=== PATIENT | female | born 1955 | race Caucasian/White ===

== ENCOUNTER 2021-05-12 17:04 | Inpatient (IN) | payer OTHER ==
[~2021-05-12] VITALS: Ht 162.6 cm; Wt 78.0 kg
[~2021-05-12 17:04] MED LIST: APIX5TAB MT; COR12 PO; FURO40TA5 PO; METO25TA6 PO; PANT40TA51 PO; SPIR25TA PO
[2021-05-12] MEDS ORDERED: ASPIRIN 81MG TABLET PO ONE (17:30)
[2021-05-12 20:36] LABS: HEMATOCRIT. 34.1 % (36.0-48.0); HEMOGLOBIN. 11.3 g/dL (12.0-16.0); MEAN CORPUSCULAR HEMOGLOBIN 29.1 pg (28.0-32.0); MEAN CORPUSCULAR VOLUME 88.1 fL (81.0-99.0); MEAN PLATELET VOLUME 9.4 fl (7.4-10.4); PLATELET 215 x1000/uL (130-400); RED BLOOD CELL COUNT 3.88 mill/uL (4.2-5.4); RED CELL DISTRIBUTION WIDTH 15.1 % (11.6-14.6)
[2021-05-12 20:44] LABS: CHLORIDE 95 mEq/L (98-107)
[2021-05-12 21:16] LABS: PLATELET ESTIMATE NORMAL
[2021-05-12] MEDS ORDERED: FUROSEMIDE 40MG/4ML VIAL IVP ONE (21:30)
[2021-05-12] MEDS ORDERED: SODIUM CHLORIDE 0.9% 500 ML IV ONE ×2 (22:30→23:30)
[2021-05-13] VITALS (30 sets, daily range): BP systolic 102–132; BP diastolic 46–82
[2021-05-13] MEDS ORDERED: NOREPINEPHRINE 32 MG in DEXT 5% WATER 218 ML IV PRN ×2 (01:45→02:00)
[2021-05-13] MEDS: ASPIRIN 81MG TABLET PO SCH (09:30)
[2021-05-13 10:08] LABS: INR 1.1; PROTHROMBIN TIME 12.2 sec (9.6-11.0)
[2021-05-13] MEDS: ENOXAPARIN 80MG/0.8ML SYR SUBCUT SCH ×2 (20:33→20:36)
[2021-05-13] MEDS: ATORVASTATIN CALCIUM 40MG TABLET PO SCH (20:33)
[2021-05-14] VITALS (61 sets, daily range): BP systolic 80–167; BP diastolic 32–111
[2021-05-14 07:05] LABS: HEMATOCRIT. 34.2 % (36.0-48.0); HEMOGLOBIN. 11.1 g/dL (12.0-16.0); MEAN CORPUSCULAR VOLUME 89.1 fL (81.0-99.0); MEAN PLATELET VOLUME 9.5 fl (7.4-10.4); PLATELET 283 x1000/uL (130-400); RED BLOOD CELL COUNT 3.84 mill/uL (4.2-5.4); RED CELL DISTRIBUTION WIDTH 15.2 % (11.6-14.6)
[2021-05-14 07:21] LABS: CHLORIDE 99 mEq/L (98-107)
[2021-05-14] MEDS: ASPIRIN 81MG TABLET PO SCH (09:00)
[2021-05-14] MEDS: KCL 20MEQ/100ML PREMIX 100 ML IV SCH ×2 (10:22→12:11)
[2021-05-14 16:30] LABS: PLATELET ESTIMATE NORMAL
[2021-05-14] MEDS ORDERED: DILTIAZEM HCL 5MG/ML 5ML VIAL IV NR (18:15)
[2021-05-14] MEDS ORDERED: ADENOSINE 3 MG/ML 2ML VIAL IV NR (18:15)
[2021-05-14] MEDS ORDERED: SODIUM CHLORIDE 0.9% 250 ML IV ONE (19:00)
[2021-05-14] MEDS: ATORVASTATIN CALCIUM 40MG TABLET PO SCH (21:31)
[2021-05-14] MEDS: ENOXAPARIN 80MG/0.8ML SYR SUBCUT SCH (21:31)
[2021-05-15] VITALS: BP 100/67
[2021-05-15 04:00] VITALS: BP 97/63
[2021-05-15 07:57] LABS: HEMATOCRIT. 35.5 % (36.0-48.0); HEMOGLOBIN. 11.6 g/dL (12.0-16.0); MEAN CORPUSCULAR HEMOGLOBIN 28.9 pg (28.0-32.0); MEAN PLATELET VOLUME 9.8 fl (7.4-10.4); PLATELET 280 x1000/uL (130-400); RED BLOOD CELL COUNT 3.99 mill/uL (4.2-5.4)
[2021-05-15 08:00] VITALS: BP 97/50
[2021-05-15 08:19] LABS: CHLORIDE 101 mEq/L (98-107)
[2021-05-15] MEDS ORDERED: NICARDIPINE 100MCG/ML 10ML VIAL (CATH LAB) IV ONE (08:53)
[2021-05-15] MEDS ORDERED: HEPARIN SODIUM 1,000 UNIT/1ML VIAL IV ONE (08:53)
[2021-05-15] MEDS ORDERED: NITROGLYCERIN 50MCG/ML 10ML VIAL (CATH LAB) IV ONE (08:53)
[2021-05-15] MEDS: ASPIRIN 81MG TABLET PO SCH (09:00)
[2021-05-15] MEDS: ENOXAPARIN 80MG/0.8ML SYR SUBCUT SCH ×2 (09:00→21:57)
[2021-05-15] MEDS ORDERED: FENTANYL CITRATE/PF 50MCG/ML 2ML VIAL ONE (10:02)
[2021-05-15] MEDS ORDERED: MIDAZOLAM HCL 2 MG/2 ML VIAL ONE (10:02)
[2021-05-15] MEDS ORDERED: IODIXANOL 320MG/ML 100 ML BOTTLE IV ONE (10:03)
[2021-05-15] MEDS ORDERED: LIDOCAINE HCL 1% 20ML VIAL (Pyxis) INJ ONE (10:03)
[2021-05-15] MEDS ORDERED: VERAPAMIL HCL 2.5 MG/1 ML 2ML VIAL IV ONE (10:03)
[2021-05-15] MEDS ORDERED: ACETAMINOPHEN 325MG TABLET PO PRN (13:00)
[2021-05-15] MEDS ORDERED: ATROPINE SULFATE 1MG/10ML SYR IV PRN (13:00)
[2021-05-15] MEDS: METOPROLOL SUCCINATE 50MG ER TABLET PO SCH (14:00)
[2021-05-15 14:56] VITALS: BP 112/61
[2021-05-15 16:00] VITALS: BP 101/64
[2021-05-15 17:42] LABS: PLATELET ESTIMATE NORMAL
[2021-05-15] MEDS ORDERED: COR12 PO (19:03)
[2021-05-15 19:46] VITALS: BP_SYST 103; BP_SYST 108; BP_DIAS 60; BP_DIAS 71
[2021-05-15] MEDS: ATORVASTATIN CALCIUM 40MG TABLET PO SCH (21:57)
[2021-05-16] VITALS: BP 96/61
[2021-05-16 07:28] LABS: HEMATOCRIT. 36.2 % (36.0-48.0); HEMOGLOBIN. 12.4 g/dL (12.0-16.0); MEAN CORPUSCULAR HEMOGLOBIN 29.9 pg (28.0-32.0); MEAN CORPUSCULAR VOLUME 87.7 fL (81.0-99.0); MEAN PLATELET VOLUME 9.7 fl (7.4-10.4); PLATELET 360 x1000/uL (130-400); RED BLOOD CELL COUNT 4.13 mill/uL (4.2-5.4); RED CELL DISTRIBUTION WIDTH 15.6 % (11.6-14.6)
[2021-05-16 07:36] LABS: CHLORIDE 96 mEq/L (98-107)
[2021-05-16 08:00] VITALS: BP 119/76
[2021-05-16] MEDS: METOPROLOL SUCCINATE 50MG ER TABLET PO SCH (09:17)
[2021-05-16] MEDS: ASPIRIN 81MG TABLET PO SCH (09:17)
[2021-05-16] MEDS: ENOXAPARIN 80MG/0.8ML SYR SUBCUT SCH (09:17)
[2021-05-16 12:00] VITALS: BP 113/51
[2021-05-16] MEDS ORDERED: LEVO500T89 MT (12:08)
[2021-05-16] MEDS ORDERED: CEFTRIAXONE 1 G PREMIX 50 ML IV SCH (12:15)
[2021-05-16 13:26] LABS: PLATELET ESTIMATE NORMAL
[2021-05-16] MEDS ORDERED: CEFTRIAXONE 1,000 MG in DEXTROSE 5% WATER 50 ML IV SCH (13:30)
[2021-05-16 15:00] LABS: CLARITY URINE CLOUDY (CLEAR); COLOR URINE DARK YELLOW (YELLOW); KETONES URINE TRACE (NEGATIVE); LEUKOCYTE ESTERASE URINE 2+ (NEGATIVE); NITRITE URINE POSITIVE (NEGATIVE); OCCULT BLOOD URINE NEGATIVE (NEGATIVE); PH URINE 5.5 (4.5-8.0); PROTEIN URINE 1+ (NEGATIVE)
[2021-05-16 16:00] VITALS: BP 108/60
== END 2021-05-16 22:08 | disposition home or self-care (01) | DRG 280 ==
LOC: ER 17:04 → MICUSO 21:31 → EDBEDREQTM 21:42 → EDBEDREQ 21:42 → CVICU 05-13 18:56 → 6WST 05-14 15:13
PROVIDERS: ADMIT Internal Medicine; ATTEND Internal Medicine
PROC: 02HV33Z Insertion of Infusion Device into Superior Vena Cava, Percutaneous Approach (ICD-10-PCS; principal; 2021-05-12)
PROC: B548ZZA Ultrasonography of Superior Vena Cava, Guidance (ICD-10-PCS; 2021-05-12)
PROC: 4A023N7 Measurement of Cardiac Sampling and Pressure, Left Heart, Percutaneous Approach (ICD-10-PCS; 2021-05-15)
PROC: B211YZZ Fluoroscopy of Multiple Coronary Arteries using Other Contrast (ICD-10-PCS; 2021-05-15)
DX: I21.4 Non-ST elevation (NSTEMI) myocardial infarction (principal); I50.23 Acute on chronic systolic (congestive) heart failure; E43 Unspecified severe protein-calorie malnutrition; A41.9 Sepsis, unspecified organism; I42.8 Other cardiomyopathies; E87.1 Hypo-osmolality and hyponatremia; I48.19 Other persistent atrial fibrillation; R57.9 Shock, unspecified; I48.92 Unspecified atrial flutter; N39.0 Urinary tract infection, site not specified; I27.20 Pulmonary hypertension, unspecified; Z20.822 Contact with and (suspected) exposure to COVID-19; E11.9 Type 2 diabetes mellitus without complications; E78.5 Hyperlipidemia, unspecified; E87.8 Other disorders of electrolyte and fluid balance, not elsewhere classified; I34.0 Nonrheumatic mitral (valve) insufficiency; I25.10 Atherosclerotic heart disease of native coronary artery without angina pectoris; I44.7 Left bundle-branch block, unspecified; I11.0 Hypertensive heart disease with heart failure; E66.9 Obesity, unspecified; Z68.29 Body mass index [BMI] 29.0-29.9, adult; Z79.01 Long term (current) use of anticoagulants; Z86.16 Personal history of COVID-19; Z87.442 Personal history of urinary calculi; Z79.899 Other long term (current) drug therapy
CPT/HCPCS: 36415; 71045; 80048; 80053; 81003; 83605; 83880; 84145; 84484; 85025; 87426; 93005; 93306; 93458; 99291; C1769; C1887; C1893; J0153; J0696; J1644; J1650; J1940; J2250; J3010; J3480; J3490; J7040; J7060; Q9967

== ENCOUNTER 2022-01-01 18:49 | Inpatient (IN) | payer OTHER ==
[~2022-01-01] VITALS: Ht 165.1 cm; Wt 68.9 kg
[~2022-01-01 18:49] MED LIST changes: +LEVO500T90 MT; -METO25TA6 PO
[2022-01-01] MEDS ORDERED: ACETAMINOPHEN 325MG TABLET PO ONE (19:30)
[2022-01-01] MEDS ORDERED: ASPIRIN 81MG TABLET PO ONE (19:30)
[2022-01-01] MEDS ORDERED: NITROGLYCERIN 0.4MG TABLET SL SL PRN (19:30)
[2022-01-01] MEDS ORDERED: NITROGLYCERIN OINT 1GM/INCH UDPKT TD ONE (20:00)
[2022-01-01] MEDS ORDERED: FUROSEMIDE 40MG/4ML VIAL IV ONE (20:00)
[2022-01-01] MEDS ORDERED: NITROGLYCERIN OINT 1GM/INCH UDPKT TD SCH (20:15)
[2022-01-01] MEDS ORDERED: ASPIRIN 81MG TABLET PO SCH (20:15)
[2022-01-01] MEDS ORDERED: ACETAMINOPHEN 325MG TABLET PO SCH (20:15)
[2022-01-01 20:19] LABS: BASOPHILS % 0.9 % (0.0-2.0); EOSINOPHILS % 0.1 % (0.0-5.0); HEMATOCRIT. 39.1 % (36.0-48.0); HEMOGLOBIN. 12.8 g/dL (12.0-16.0); LYMPHOCYTES % 10.3 % (20.0-50.0); MEAN CORPUSCULAR HEMOGLOBIN 29.3 pg (28.0-32.0); MEAN CORPUSCULAR VOLUME 89.6 fL (81.0-99.0); MEAN PLATELET VOLUME 10.2 fl (7.4-10.4); MONOCYTES % 4.8 % (2.0-8.0); NEUTROPHILS % 83.9 % (40.0-76.0); PLATELET 190 x1000/uL (130-400); RED BLOOD CELL COUNT 4.37 mill/uL (4.2-5.4); RED CELL DISTRIBUTION WIDTH 16.7 % (11.6-14.6)
[2022-01-01 20:40] LABS: CHLORIDE 104 mEq/L (98-107)
[2022-01-01 21:34] LABS: BG BASE EXCESS -0.6 mmol/L (-2.0-2.0); BG CARBOXYHEMOGLOBIN 0.4 % (0.5-1.5); BG DEOXYHEMOGLOBIN 1.5 % (0.0-5.0); BG FRACTION INSPIRED OXYGEN 40; BG HCO3 ACT 23.2 mmol/L (22.0-26.0); BG METHEMOGLOBIN 0.3 % (0.0-1.5); BG OXYGEN SATURATION 98.5 % (92.0-98.5); BG OXYHEMOGLOBIN 97.8 % (94.0-97.0); BG PCO2 35.3 mmHg (35.0-45.0); BG PH 7.435 (7.350-7.450); BG PO2 134.7 mmHg (75.0-100.0); BG SAMPLE SITE LEFT RADIAL; BG TOTAL HEMOGLOBIN 12.4 g/dL (12.0-18.0); BG VENT MODE MASK - BIPAP
[2022-01-01] MEDS ORDERED: DOCUSATE SODIUM 100MG CAPSULE PO PRN (23:15)
[2022-01-01] MEDS ORDERED: PANTOPRAZOLE 40MG DR TABLET PO SCH (23:15)
[2022-01-01] MEDS ORDERED: GUAIFENESIN 200MG/10ML SUGAR FREE UDC PO PRN (23:15)
[2022-01-01] MEDS ORDERED: ACETAMINOPHEN 325MG TABLET PO PRN (23:15)
[2022-01-01] MEDS: SPIRONOLACTONE 25MG TABLET PO SCH (23:15)
[2022-01-01] MEDS ORDERED: TRAMADOL 50MG TABLET PO PRN (23:15)
[2022-01-01] MEDS ORDERED: HYDROCODONE/ACETAMINOPHEN 5/325MG TABLET PO PRN (23:15)
[2022-01-01] MEDS ORDERED: MAGNESIUM/ALUMINUM HYDROXIDE/SIMETHICONE 30ML UDC PO PRN (23:15)
[2022-01-02 05:22] LABS: BASOPHILS % 0.7 % (0.0-2.0); EOSINOPHILS % 0.1 % (0.0-5.0); HEMATOCRIT. 37.7 % (36.0-48.0); HEMOGLOBIN. 12.2 g/dL (12.0-16.0); LYMPHOCYTES % 15.4 % (20.0-50.0); MEAN CORPUSCULAR HEMOGLOBIN 28.9 pg (28.0-32.0); MEAN CORPUSCULAR VOLUME 89.5 fL (81.0-99.0); MEAN PLATELET VOLUME 9.7 fl (7.4-10.4); MONOCYTES % 5.6 % (2.0-8.0); NEUTROPHILS % 78.2 % (40.0-76.0); PLATELET 143 x1000/uL (130-400); RED BLOOD CELL COUNT 4.21 mill/uL (4.2-5.4); RED CELL DISTRIBUTION WIDTH 16.5 % (11.6-14.6)
[2022-01-02 05:29] LABS: CHLORIDE 103 mEq/L (98-107)
[2022-01-02 05:48] LABS: LDL CHOLESTEROL 70 mg/dL (5-100)
[2022-01-02 06:04] LABS: HDL CHOLESTEROL 73 mg/dL (40-59)
[2022-01-02] MEDS: ONDANSETRON HCL 4MG/2ML INJ IV PRN (06:18)
[2022-01-02 06:42] LABS: BG BASE EXCESS -0.7 mmol/L (-2.0-2.0); BG CARBOXYHEMOGLOBIN 0.8 % (0.5-1.5); BG DEOXYHEMOGLOBIN 5.7 % (0.0-5.0); BG FRACTION INSPIRED OXYGEN 36; BG HCO3 ACT 23.5 mmol/L (22.0-26.0); BG OXYGEN SATURATION 94.3 % (92.0-98.5); BG OXYHEMOGLOBIN 93.5 % (94.0-97.0); BG PCO2 37.6 mmHg (35.0-45.0); BG PH 7.414 (7.350-7.450); BG PO2 75.3 mmHg (75.0-100.0); BG SAMPLE SITE LEFT RADIAL; BG TOTAL HEMOGLOBIN 13.2 g/dL (12.0-18.0); BG VENT MODE NASAL CANNULA
[2022-01-02] MEDS ORDERED: CARVEDILOL 12.5MG TABLET PO SCH (09:00)
[2022-01-02] MEDS: SPIRONOLACTONE 25MG TABLET PO SCH ×2 (09:00→16:55)
[2022-01-02] MEDS ORDERED: FUROSEMIDE 40MG/4ML VIAL IV SCH ×2 (09:00→13:00)
[2022-01-02] MEDS: PANTOPRAZOLE 40MG DR TABLET PO SCH (09:43)
[2022-01-02] MEDS: APIXABAN 5 MG TABLET PO SCH ×2 (09:43→16:58)
[2022-01-02 12:00] VITALS: BP 103/58
[2022-01-02 13:03] VITALS: BP 108/70
[2022-01-02] MEDS ORDERED: EMPA10TA PO (14:00)
[2022-01-02] MEDS: POTASSIUM CHLORIDE 20MEQ TABLET SR PO SCH (14:04)
[2022-01-02 16:00] VITALS: BP 105/58
[2022-01-02] MEDS: FUROSEMIDE 40MG/4ML VIAL IV SCH (18:54)
[2022-01-02] MEDS ORDERED: EMPA10TA MT (19:47)
[2022-01-02 20:00] VITALS: BP 100/56
[2022-01-02] MEDS: ATORVASTATIN CALCIUM 10MG TABLET PO SCH (20:32)
[2022-01-03] VITALS (7 sets, daily range): BP systolic 85–105; BP diastolic 51–74
[2022-01-03] MEDS: FUROSEMIDE 40MG/4ML VIAL IV SCH ×2 (05:20→18:00)
[2022-01-03 06:56] LABS: HEMATOCRIT 36.3 % (36.0-48.0); HEMOGLOBIN 11.8 g/dL (12.0-16.0); MEAN CORPUSCULAR HEMOGLOBIN 29.1 pg (28.0-32.0); MEAN CORPUSCULAR VOLUME 89.8 fL (81.0-99.0); PLATELET 139 x1000/uL (130-400); RED BLOOD CELL COUNT 4.04 mill/uL (4.2-5.4); RED CELL DISTRIBUTION WIDTH 16.4 % (11.6-14.6)
[2022-01-03 07:18] LABS: CHLORIDE 101 mEq/L (98-107)
[2022-01-03 07:28] LABS: PHOSPHORUS 2.8 mg/dL (2.5-4.9)
[2022-01-03] MEDS ORDERED: POTASSIUM PHOS,M-BASIC-D-BASIC 20 MMOL in DEXT 5% WATER 243.3333 ML IV ONE (10:00)
[2022-01-03] MEDS: APIXABAN 5 MG TABLET PO SCH ×2 (11:18→18:16)
[2022-01-03] MEDS: POTASSIUM CHLORIDE 20MEQ TABLET SR PO SCH (11:18)
[2022-01-03] MEDS: SPIRONOLACTONE 25MG TABLET PO SCH (11:40)
[2022-01-03] MEDS: PANTOPRAZOLE 40MG DR TABLET PO SCH (11:41)
[2022-01-03] MEDS ORDERED: NALOXONE HCL 0.4MG/ML VIAL IV PRN (18:45)
[2022-01-03] MEDS: ATORVASTATIN CALCIUM 10MG TABLET PO SCH (20:35)
[2022-01-04 04:00] VITALS: BP 97/66
[2022-01-04] MEDS: FUROSEMIDE 40MG/4ML VIAL IV SCH ×2 (05:21→17:01)
[2022-01-04 08:00] VITALS: BP 115/92
[2022-01-04] MEDS: POTASSIUM CHLORIDE 20MEQ TABLET SR PO SCH (08:01)
[2022-01-04] MEDS: SPIRONOLACTONE 25MG TABLET PO SCH (08:01)
[2022-01-04] MEDS: PANTOPRAZOLE 40MG DR TABLET PO SCH (08:01)
[2022-01-04] MEDS: APIXABAN 5 MG TABLET PO SCH ×2 (08:01→16:50)
[2022-01-04 10:42] LABS: BG BASE EXCESS 4.5 mmol/L (-2.0-2.0); BG CARBOXYHEMOGLOBIN 0.8 % (0.5-1.5); BG DEOXYHEMOGLOBIN 1.8 % (0.0-5.0); BG FRACTION INSPIRED OXYGEN 21; BG HCO3 ACT 26.5 mmol/L (22.0-26.0); BG METHEMOGLOBIN 0.1 % (0.0-1.5); BG OXYGEN SATURATION 98.2 % (92.0-98.5); BG OXYHEMOGLOBIN 97.3 % (94.0-97.0); BG PCO2 31.2 mmHg (35.0-45.0); BG PH 7.547 (7.350-7.450); BG PO2 96.5 mmHg (75.0-100.0); BG SAMPLE SITE LEFT RADIAL; BG TOTAL HEMOGLOBIN 12.3 g/dL (12.0-18.0); BG VENT MODE ROOM AIR
[2022-01-04 11:33] VITALS: BP 95/60
[2022-01-04 12:27] VITALS: BP 95/65
[2022-01-04 13:27] LABS: HEMATOCRIT 40.8 % (36.0-48.0); HEMOGLOBIN 13.1 g/dL (12.0-16.0); MEAN CORPUSCULAR HEMOGLOBIN 29.3 pg (28.0-32.0); MEAN CORPUSCULAR VOLUME 91.5 fL (81.0-99.0); PLATELET 122 x1000/uL (130-400); RED BLOOD CELL COUNT 4.45 mill/uL (4.2-5.4); RED CELL DISTRIBUTION WIDTH 16.9 % (11.6-14.6)
[2022-01-04 13:40] LABS: CHLORIDE 101 mEq/L (98-107)
[2022-01-04 13:45] LABS: PHOSPHORUS 2.3 mg/dL (2.5-4.9)
[2022-01-04] MEDS: ONDANSETRON HCL 4MG/2ML INJ IV PRN (14:32)
[2022-01-04] MEDS ORDERED: SODIUM CHLORIDE 0.45% 250 ML IV ONE (14:45)
[2022-01-04] MEDS ORDERED: METOPROLOL TARTRATE 5MG/5ML VIAL IV SCH (14:45)
[2022-01-04] MEDS: METOPROLOL TARTRATE 25MG TABLET PO SCH ×2 (15:00→23:00)
[2022-01-04 15:38] VITALS: BP 110/82
[2022-01-04] MEDS ORDERED: SODIUM CHLORIDE 0.45% 250 ML IV SCH (17:00)
[2022-01-04] MEDS ORDERED: SODIUM CHLORIDE 0.45% 500 ML IV NR (17:00)
[2022-01-04 20:00] VITALS: BP 107/59
[2022-01-04] MEDS: ATORVASTATIN CALCIUM 10MG TABLET PO SCH (21:01)
[2022-01-05] VITALS: BP 107/67
[2022-01-05] MEDS: ONDANSETRON HCL 4MG/2ML INJ IV PRN (00:03)
[2022-01-05 04:00] VITALS: BP 92/55
[2022-01-05] MEDS: FUROSEMIDE 40MG/4ML VIAL IV SCH (06:21)
[2022-01-05 08:04] VITALS: BP 90/53
[2022-01-05] MEDS: METOPROLOL TARTRATE 25MG TABLET PO SCH (08:17)
[2022-01-05] MEDS: APIXABAN 5 MG TABLET PO SCH (08:17)
[2022-01-05] MEDS: PANTOPRAZOLE 40MG DR TABLET PO SCH (08:17)
[2022-01-05] MEDS: POTASSIUM CHLORIDE 20MEQ TABLET SR PO SCH (08:17)
[2022-01-05 09:16] LABS: HEMATOCRIT 33.7 % (36.0-48.0); MEAN CORPUSCULAR HEMOGLOBIN 29.1 pg (28.0-32.0); MEAN CORPUSCULAR VOLUME 88.7 fL (81.0-99.0); PLATELET 131 x1000/uL (130-400); RED CELL DISTRIBUTION WIDTH 16.5 % (11.6-14.6)
[2022-01-05 09:22] LABS: CHLORIDE 100 mEq/L (98-107)
[2022-01-05 09:27] LABS: PHOSPHORUS 2.1 mg/dL (2.5-4.9)
[2022-01-05 11:41] VITALS: BP 91/55
[2022-01-06] MEDS ORDERED: FUROSEMIDE 40MG TABLET PO SCH (09:00)
== END 2022-01-05 13:07 | disposition home or self-care (01) | DRG 291 ==
LOC: ER 18:49 → MICUSO 21:16 → 8WST 01-02 10:05
PROVIDERS: ADMIT Hospitalist; ATTEND Hospitalist
PROC: 5A09357 Assistance with Respiratory Ventilation, Less than 24 Consecutive Hours, Continuous Positive Airway Pressure (ICD-10-PCS; principal; 2022-01-01)
DX: I11.0 Hypertensive heart disease with heart failure (principal); I50.23 Acute on chronic systolic (congestive) heart failure; J96.01 Acute respiratory failure with hypoxia; I48.19 Other persistent atrial fibrillation; I48.92 Unspecified atrial flutter; I07.1 Rheumatic tricuspid insufficiency; I27.20 Pulmonary hypertension, unspecified; I42.8 Other cardiomyopathies; I25.10 Atherosclerotic heart disease of native coronary artery without angina pectoris; I44.7 Left bundle-branch block, unspecified; E11.9 Type 2 diabetes mellitus without complications; Z91.14 Patient's other noncompliance with medication regimen; Z79.01 Long term (current) use of anticoagulants; Z79.84 Long term (current) use of oral hypoglycemic drugs; Z79.899 Other long term (current) drug therapy; Z87.442 Personal history of urinary calculi
CPT/HCPCS: 36415; 36600; 71045; 80048; 80053; 80061; 82375; 82805; 83036; 83735; 83880; 84100; 84484; 85025; 85027; 85379; 93005; 93306; 93970; 94660; 99291; J1940; J2405; J3490; J7060

== ENCOUNTER 2022-01-21 00:18 | Inpatient (IN) | payer OTHER ==
[~2022-01-21] VITALS: Ht 165.1 cm; Wt 61.2 kg
[~2022-01-21 00:18] MED LIST changes: +EMPA10TA MT
[2022-01-21] MEDS ORDERED: MORPHINE SULFATE 4 MG/ML CPJ (NOT FOR IM USE) IV STA (00:30)
[2022-01-21 01:00] LABS: BASOPHILS % 0.8 % (0.0-2.0); EOSINOPHILS % 0.6 % (0.0-5.0); HEMATOCRIT. 38.4 % (36.0-48.0); HEMOGLOBIN. 12.2 g/dL (12.0-16.0); LYMPHOCYTES % 34.7 % (20.0-50.0); MEAN CORPUSCULAR HEMOGLOBIN 29.6 pg (28.0-32.0); MEAN CORPUSCULAR VOLUME 93.5 fL (81.0-99.0); MEAN PLATELET VOLUME 9.4 fl (7.4-10.4); MONOCYTES % 7.5 % (2.0-8.0); NEUTROPHILS % 56.4 % (40.0-76.0); PLATELET 254 x1000/uL (130-400); RED BLOOD CELL COUNT 4.11 mill/uL (4.2-5.4); RED CELL DISTRIBUTION WIDTH 17.9 % (11.6-14.6)
[2022-01-21 01:19] LABS: CHLORIDE 97 mEq/L (98-107)
[2022-01-21] MEDS: NITROGLYCERIN 0.4MG TABLET SL SL PRN ×3 (01:36→01:46)
[2022-01-21 01:55] LABS: INR 1.2; PARTIAL THROMBOPLASTIN TIME 27.8 sec (23.4-31.0); PROTHROMBIN TIME 12.3 sec (9.6-11.0)
[2022-01-21] MEDS ORDERED: MORPHINE SULFATE 2 MG/ML CPJ (NOT FOR IM USE) IV NR (08:15)
[2022-01-21] MEDS: FUROSEMIDE 40MG/4ML VIAL IVP SCH ×2 (08:30→18:28)
[2022-01-21] MEDS ORDERED: AMIODARONE HCL 150 MG in DEXT 5% WATER 100 ML IV NR (09:30)
[2022-01-21 12:30] VITALS: BP 105/66
[2022-01-21] MEDS ORDERED: HYDROCODONE/ACETAMINOPHEN 5/325MG TABLET PO PRN (13:30)
[2022-01-21 16:00] VITALS: BP 99/64
[2022-01-21 20:00] VITALS: BP 105/67
[2022-01-21] MEDS: METOPROLOL TARTRATE 25MG TABLET PO SCH (21:00)
[2022-01-21] MEDS ORDERED: TRAM50TA3 MT (21:05)
[2022-01-21] MEDS ORDERED: AMI2 MT (21:05)
[2022-01-21] MEDS ORDERED: AMI2 PO (21:05)
[2022-01-21] MEDS: AMIODARONE HCL 200 MG TABLET PO SCH (21:07)
[2022-01-21] MEDS ORDERED: NALOXONE HCL 0.4MG/ML VIAL IV PRN (23:30)
[2022-01-22] VITALS: BP 97/57
[2022-01-22 04:00] VITALS: BP 94/56
[2022-01-22] MEDS: FUROSEMIDE 40MG/4ML VIAL IVP SCH ×3 (05:54→17:03)
[2022-01-22 08:00] VITALS: BP 93/61
[2022-01-22] MEDS: METOPROLOL TARTRATE 25MG TABLET PO SCH ×2 (08:42→21:00)
[2022-01-22] MEDS: AMIODARONE HCL 200 MG TABLET PO SCH ×2 (08:46→21:56)
[2022-01-22] MEDS: ENOXAPARIN 80MG/0.8ML SYR SUBCUT SCH ×2 (11:40→22:22)
[2022-01-22 12:00] VITALS: BP 92/50
[2022-01-22 12:01] LABS: CHLORIDE 95 mEq/L (98-107)
[2022-01-22 16:00] VITALS: BP 108/58
[2022-01-22 20:00] VITALS: BP 98/62
[2022-01-23] VITALS: BP 106/56
[2022-01-23 04:00] VITALS: BP 97/55
[2022-01-23 08:00] VITALS: BP 132/71
[2022-01-23] MEDS: FUROSEMIDE 40MG/4ML VIAL IVP SCH (09:06)
[2022-01-23] MEDS: AMIODARONE HCL 200 MG TABLET PO SCH ×2 (09:06→22:00)
[2022-01-23] MEDS: METOPROLOL TARTRATE 25MG TABLET PO SCH ×2 (09:08→21:00)
[2022-01-23] MEDS: ENOXAPARIN 80MG/0.8ML SYR SUBCUT SCH ×2 (09:09→21:59)
[2022-01-23 12:00] VITALS: BP 100/71
[2022-01-23 16:00] VITALS: BP 98/64
[2022-01-23] MEDS ORDERED: FUROSEMIDE 40MG/4ML VIAL IVP SCH (17:00)
[2022-01-23 20:00] VITALS: BP 92/56
[2022-01-24] VITALS: BP 100/62
[2022-01-24 04:00] VITALS: BP 95/59
[2022-01-24 08:00] VITALS: BP 95/60
[2022-01-24] MEDS: METOPROLOL TARTRATE 25MG TABLET PO SCH ×2 (09:00→21:00)
[2022-01-24 12:00] VITALS: BP 100/68
[2022-01-24] MEDS: AMIODARONE HCL 200 MG TABLET PO SCH ×2 (13:08→21:51)
[2022-01-24] MEDS: ENOXAPARIN 80MG/0.8ML SYR SUBCUT SCH ×2 (13:08→21:54)
[2022-01-24] MEDS ORDERED: NALOXONE HCL 0.4MG/ML VIAL IV PRN (14:15)
[2022-01-24 16:00] VITALS: BP 97/55
[2022-01-24] MEDS: FUROSEMIDE 40MG TABLET PO SCH (17:34)
[2022-01-24 20:00] VITALS: BP 101/65
[2022-01-25] VITALS: BP 95/55
[2022-01-25 04:00] VITALS: BP 90/57
[2022-01-25 08:00] VITALS: BP 100/60
[2022-01-25] MEDS: FUROSEMIDE 40MG TABLET PO SCH ×2 (08:19→17:00)
[2022-01-25] MEDS: METOPROLOL TARTRATE 25MG TABLET PO SCH ×2 (08:20→21:00)
[2022-01-25] MEDS: AMIODARONE HCL 200 MG TABLET PO SCH ×2 (09:45→21:00)
[2022-01-25] MEDS: ENOXAPARIN 80MG/0.8ML SYR SUBCUT SCH ×2 (09:46→22:38)
[2022-01-25 12:00] VITALS: BP 90/53
[2022-01-25 16:00] VITALS: BP 95/64
[2022-01-25] MEDS: GUAIFENESIN 200MG/10ML SUGAR FREE UDC PO PRN ×2 (17:00→22:37)
[2022-01-25 20:00] VITALS: BP 84/60
[2022-01-26] VITALS: BP 87/53
[2022-01-26 04:00] VITALS: BP 88/61
[2022-01-26 08:00] VITALS: BP 88/55
[2022-01-26] MEDS: METOPROLOL TARTRATE 25MG TABLET PO SCH (09:00)
[2022-01-26] MEDS: AMIODARONE HCL 200 MG TABLET PO SCH ×3 (09:00→21:14)
[2022-01-26] MEDS: FUROSEMIDE 40MG TABLET PO SCH (09:00)
[2022-01-26] MEDS: ENOXAPARIN 80MG/0.8ML SYR SUBCUT SCH ×2 (09:21→21:14)
[2022-01-26 12:00] VITALS: BP 104/50
[2022-01-26 16:00] VITALS: BP 91/61
[2022-01-26] MEDS: GUAIFENESIN 200MG/10ML SUGAR FREE UDC PO PRN ×2 (16:04→21:24)
[2022-01-27] VITALS: BP 96/57
[2022-01-27 04:00] VITALS: BP 96/60
[2022-01-27 06:49] LABS: BASOPHILS % 0.7 % (0.0-2.0); EOSINOPHILS % 1.1 % (0.0-5.0); HEMATOCRIT. 34.7 % (36.0-48.0); HEMOGLOBIN. 11.5 g/dL (12.0-16.0); LYMPHOCYTES % 20.2 % (20.0-50.0); MEAN CORPUSCULAR HEMOGLOBIN 28.9 pg (28.0-32.0); MONOCYTES % 10.8 % (2.0-8.0); NEUTROPHILS % 67.2 % (40.0-76.0); PLATELET 107 x1000/uL (130-400); RED BLOOD CELL COUNT 3.98 mill/uL (4.2-5.4); RED CELL DISTRIBUTION WIDTH 17.5 % (11.6-14.6)
[2022-01-27 07:27] LABS: CHLORIDE 92 mEq/L (98-107)
[2022-01-27] MEDS ORDERED: FENTANYL CITRATE/PF 50MCG/ML 2ML VIAL ONE (07:56)
[2022-01-27] MEDS ORDERED: MIDAZOLAM HCL 2 MG/2 ML VIAL ONE (07:56)
[2022-01-27 08:00] VITALS: BP 91/47
[2022-01-27] MEDS ORDERED: POTASSIUM CHLORIDE INJ 40 MEQ in DEXT 5% WATER 250 ML IV ONE (08:45)
[2022-01-27] MEDS ORDERED: POTASSIUM CHLORIDE 20MEQ TABLET SR PO NR (08:45)
[2022-01-27] MEDS: ENOXAPARIN 80MG/0.8ML SYR SUBCUT SCH ×2 (10:54→21:49)
[2022-01-27] MEDS: GUAIFENESIN 200MG/10ML SUGAR FREE UDC PO PRN ×2 (10:55→21:55)
[2022-01-27] MEDS: METOPROLOL SUCCINATE 50MG ER TABLET PO SCH (10:55)
[2022-01-27] MEDS: AMIODARONE HCL 200 MG TABLET PO SCH ×2 (10:56→21:49)
[2022-01-27] MEDS: KCL 20MEQ/100ML X 2 FOR TOTAL KCL 40MEQ/200ML IV SCH ×2 (10:57→13:18)
[2022-01-27 12:00] VITALS: BP 112/61
[2022-01-27 16:00] VITALS: BP 95/68
[2022-01-27 20:00] VITALS: BP 101/67
[2022-01-28] VITALS: BP 101/64
[2022-01-28 04:00] VITALS: BP 100/69
[2022-01-28] MEDS ORDERED: TETRACAINE/BENZOCAINE/BUTAMBEN 20 GM SPRAY MM ONE (07:50)
[2022-01-28] MEDS ORDERED: LIDOCAINE HCL 2% JELLY 5ML ONE (07:52)
[2022-01-28 08:00] VITALS: BP 115/80
[2022-01-28 08:02] LABS: CHLORIDE 96 mEq/L (98-107)
[2022-01-28] MEDS ORDERED: LIDOCAINE HCL 1% 50ML VIAL (10MG/ML) ONE (08:45)
[2022-01-28] MEDS ORDERED: PROPOFOL 200MG/20ML VIAL IV ONE ×2 (08:46→09:00)
[2022-01-28] MEDS ORDERED: LISINOPRIL 2.5MG TABLET PO SCH (09:45)
[2022-01-28] MEDS ORDERED: AMI2 PO (11:14)
[2022-01-28] MEDS ORDERED: METO-385 PO (11:14)
[2022-01-28] MEDS ORDERED: LISI2.5T47 PO (11:14)
[2022-01-28] MEDS ORDERED: RIVA20TA PO (11:14)
[2022-01-28 12:00] VITALS: BP 100/68
[2022-01-28] MEDS ORDERED: FUROSEMIDE 40MG/4ML VIAL IVP NR (12:00)
[2022-01-28] MEDS ORDERED: FURO-151 MT (12:11)
[2022-01-28] MEDS: AMIODARONE HCL 200 MG TABLET PO SCH (13:17)
[2022-01-28] MEDS: METOPROLOL SUCCINATE 50MG ER TABLET PO SCH (13:17)
[2022-01-28 15:53] VITALS: BP 100/68
[2022-01-28 16:00] VITALS: BP 90/58
[2022-01-28] MEDS ORDERED: RIVAROXABAN 20 MG TABLET PO SCH (17:00)
== END 2022-01-28 17:45 | disposition home or self-care (01) | DRG 291 ==
LOC: ER 00:48 → 7WST 02:35 → EDBEDREQ 02:37 → EDBEDREQTM 02:37
PROVIDERS: ADMIT Internal Medicine; ATTEND Internal Medicine
PROC: 02HV33Z Insertion of Infusion Device into Superior Vena Cava, Percutaneous Approach (ICD-10-PCS; principal; 2022-01-27)
PROC: B548ZZA Ultrasonography of Superior Vena Cava, Guidance (ICD-10-PCS; 2022-01-27)
DX: I11.0 Hypertensive heart disease with heart failure (principal); I50.23 Acute on chronic systolic (congestive) heart failure; J96.01 Acute respiratory failure with hypoxia; E44.0 Moderate protein-calorie malnutrition; E87.1 Hypo-osmolality and hyponatremia; I48.19 Other persistent atrial fibrillation; E11.9 Type 2 diabetes mellitus without complications; I27.20 Pulmonary hypertension, unspecified; I42.8 Other cardiomyopathies; E87.6 Hypokalemia; I25.10 Atherosclerotic heart disease of native coronary artery without angina pectoris; R77.8 Other specified abnormalities of plasma proteins; I34.0 Nonrheumatic mitral (valve) insufficiency; E87.8 Other disorders of electrolyte and fluid balance, not elsewhere classified; Z20.822 Contact with and (suspected) exposure to COVID-19; Z95.810 Presence of automatic (implantable) cardiac defibrillator; Z87.442 Personal history of urinary calculi
CPT/HCPCS: 36415; 36573; 71045; 80048; 80053; 83735; 83880; 84484; 85025; 87426; 93005; 93306; 93312; 99291; A6261; C1725; C1893; C9803; J0282; J1650; J1940; J2250; J2270; J2704; J3010; J3480; J3490; J7060

== ENCOUNTER 2022-02-24 09:02 | Inpatient (IN) | payer OTHER ==
[~2022-02-24] VITALS: Ht 162.6 cm; Wt 71.4 kg
[~2022-02-24 09:02] MED LIST changes: +AMI2 MT; +AMI2 PO; -APIX5TAB MT; -COR12 PO; +FURO-151 MT; -LEVO500T90 MT; +LISI2.5T47 PO; +METO-385 PO; -PANT40TA51 PO; +RIVA20TA PO; +TRAM50TA3 MT
[2022-02-24 10:07] LABS: BASOPHILS % 1.2 % (0.0-2.0); EOSINOPHILS % 0.9 % (0.0-5.0); HEMATOCRIT. 39.7 % (36.0-48.0); HEMOGLOBIN. 12.8 g/dL (12.0-16.0); LYMPHOCYTES % 17.9 % (20.0-50.0); MEAN CORPUSCULAR HEMOGLOBIN 29.7 pg (28.0-32.0); MEAN CORPUSCULAR VOLUME 92.3 fL (81.0-99.0); MEAN PLATELET VOLUME 8.9 fl (7.4-10.4); MONOCYTES % 5.9 % (2.0-8.0); NEUTROPHILS % 74.1 % (40.0-76.0); PLATELET 226 x1000/uL (130-400); RED CELL DISTRIBUTION WIDTH 21.2 % (11.6-14.6)
[2022-02-24] MEDS ORDERED: FUROSEMIDE 20MG/2ML VIAL ONE (10:20)
[2022-02-24] MEDS ORDERED: ONDANSETRON HCL 4MG/2ML INJ ONE (10:25)
[2022-02-24] MEDS ORDERED: KCL 20MEQ/100ML PREMIX 200 ML IV ONE (10:29)
[2022-02-24 10:50] LABS: INR 1.4; PROTHROMBIN TIME 14.8 sec (9.6-11.0)
[2022-02-24] MEDS: SPIRONOLACTONE 50MG TABLET PO SCH (11:15)
[2022-02-24 12:44] VITALS: BP 126/63
[2022-02-24] MEDS: AMIODARONE HCL 200 MG TABLET PO SCH ×2 (14:01→20:16)
[2022-02-24 16:00] VITALS: BP 109/62
[2022-02-24] MEDS ORDERED: METOPROLOL TARTRATE 5MG/5ML VIAL IV PRN (16:15)
[2022-02-24] MEDS: GUAIFENESIN-DM 200MG-20MG/10ML UDC PO PRN ×2 (16:16→20:15)
[2022-02-24] MEDS: RIVAROXABAN 20 MG TABLET PO SCH (17:45)
[2022-02-24 20:00] VITALS: BP 108/70
[2022-02-24] MEDS: METOPROLOL TARTRATE 25MG TABLET PO SCH (20:03)
[2022-02-24] MEDS: FUROSEMIDE 40MG/4ML VIAL IVP SCH (21:37)
[2022-02-24] MEDS ORDERED: ONDANSETRON HCL 4MG/2ML INJ IV PRN (22:45)
[2022-02-25] VITALS: BP 125/104
[2022-02-25 04:00] VITALS: BP 110/57
[2022-02-25 08:00] VITALS: BP 105/68
[2022-02-25] MEDS ORDERED: FUROSEMIDE 40MG/4ML VIAL IVP SCH (09:00)
[2022-02-25] MEDS: METOPROLOL TARTRATE 25MG TABLET PO SCH ×2 (09:00→21:00)
[2022-02-25] MEDS: AMIODARONE HCL 200 MG TABLET PO SCH ×2 (09:05→21:31)
[2022-02-25] MEDS: FUROSEMIDE 40MG/4ML VIAL IVP SCH ×2 (09:06→17:29)
[2022-02-25] MEDS: SPIRONOLACTONE 50MG TABLET PO SCH (09:09)
[2022-02-25 09:36] LABS: CHLORIDE 99 mEq/L (98-107)
[2022-02-25] MEDS: GUAIFENESIN-DM 200MG-20MG/10ML UDC PO PRN ×2 (11:25→17:38)
[2022-02-25 12:00] VITALS: BP 95/64
[2022-02-25] MEDS ORDERED: IPRATROPIUM/ALBUTEROL 0.5-3(2.5)MG/3ML NEB HHN NR (13:45)
[2022-02-25 13:58] LABS: BG BASE EXCESS -2.1 mmol/L (-2.0-2.0); BG CARBOXYHEMOGLOBIN 0.3 % (0.5-1.5); BG DEOXYHEMOGLOBIN 5.4 % (0.0-5.0); BG FRACTION INSPIRED OXYGEN 21; BG HCO3 ACT 21.8 mmol/L (22.0-26.0); BG METHEMOGLOBIN 0.3 % (0.0-1.5); BG OXYGEN SATURATION 94.6 % (92.0-98.5); BG PCO2 34.6 mmHg (35.0-45.0); BG PH 7.417 (7.350-7.450); BG PO2 75.3 mmHg (75.0-100.0); BG SAMPLE SITE LEFT BRACHIAL; BG TOTAL HEMOGLOBIN 12.8 g/dL (12.0-18.0); BG VENT MODE ROOM AIR
[2022-02-25] MEDS ORDERED: IPRATROPIUM/ALBUTEROL 0.5-3(2.5)MG/3ML NEB HHN PRN (15:30)
[2022-02-25 16:00] VITALS: BP 104/54
[2022-02-25] MEDS: RIVAROXABAN 20 MG TABLET PO SCH (17:29)
[2022-02-25] MEDS ORDERED: IPRATROPIUM/ALBUTEROL 0.5-3(2.5)MG/3ML NEB HHN SCH (18:00)
[2022-02-25] MEDS ORDERED: AMIO100T4 PO (18:30)
[2022-02-26] VITALS (7 sets, daily range): BP systolic 83–103; BP diastolic 50–69
[2022-02-26] MEDS: FUROSEMIDE 40MG/4ML VIAL IVP SCH (07:15)
[2022-02-26] MEDS: AMIODARONE HCL 200 MG TABLET PO SCH (09:15)
[2022-02-26] MEDS: METOPROLOL TARTRATE 25MG TABLET PO SCH (09:15)
[2022-02-26] MEDS: SPIRONOLACTONE 50MG TABLET PO SCH (09:15)
[2022-02-26] MEDS ORDERED: AMIO100T4 PO (12:03)
[2022-02-26] MEDS ORDERED: METO-385 PO (12:03)
[2022-02-26] MEDS ORDERED: RIVA20TA PO (12:03)
[2022-02-26] MEDS ORDERED: SPIR25TA PO (12:03)
[2022-02-26] MEDS ORDERED: FURO40TA5 PO (12:03)
[2022-02-26 18:28] LABS: CHLORIDE 98 mEq/L (98-107)
== END 2022-02-26 19:15 | disposition home or self-care (01) | DRG 291 ==
LOC: CCL 09:02 → 3WST 12:26
PROVIDERS: ADMIT Internal Medicine Clinical Cardiac Electrophysiology; ATTEND Internal Medicine Clinical Cardiac Electrophysiology
DX: I13.0 Hypertensive heart and chronic kidney disease with heart failure and stage 1 through stage 4 chronic kidney disease, or unspecified chronic kidney disease (principal); I50.23 Acute on chronic systolic (congestive) heart failure; J96.01 Acute respiratory failure with hypoxia; E44.1 Mild protein-calorie malnutrition; E87.1 Hypo-osmolality and hyponatremia; I48.19 Other persistent atrial fibrillation; Z20.822 Contact with and (suspected) exposure to COVID-19; I27.20 Pulmonary hypertension, unspecified; I34.0 Nonrheumatic mitral (valve) insufficiency; N18.9 Chronic kidney disease, unspecified; I51.3 Intracardiac thrombosis, not elsewhere classified; R74.01 Elevation of levels of liver transaminase levels; Z68.27 Body mass index [BMI] 27.0-27.9, adult; Z95.810 Presence of automatic (implantable) cardiac defibrillator
CPT/HCPCS: 36415; 36600; 71045; 80048; 80053; 82375; 82805; 84132; 84145; 85025; 87426; 93005; 94640; A6261; C9803; J1940; J2405; J3480

== ENCOUNTER 2022-06-06 23:25 | Inpatient (IN) | payer MEDICARE, OTHER ==
[~2022-06-06] VITALS: Ht 162.6 cm; Wt 68.5 kg
[~2022-06-06 23:25] MED LIST changes: -AMI2 MT; -AMI2 PO; +AMIO100T4 PO; -FURO-151 MT
[2022-06-07] MEDS ORDERED: ASPIRIN 81MG TABLET PO ONE
[2022-06-07 00:11] LABS: BASOPHILS % 1.4 % (0.0-2.0); EOSINOPHILS % 1.2 % (0.0-5.0); HEMATOCRIT. 39.8 % (36.0-48.0); HEMOGLOBIN. 12.9 g/dL (12.0-16.0); LYMPHOCYTES % 11.8 % (20.0-50.0); MEAN CORPUSCULAR HEMOGLOBIN 30.8 pg (28.0-32.0); MEAN CORPUSCULAR VOLUME 94.7 fL (81.0-99.0); MEAN PLATELET VOLUME 9.5 fl (7.4-10.4); MONOCYTES % 6.4 % (2.0-8.0); NEUTROPHILS % 79.2 % (40.0-76.0); PLATELET 210 x1000/uL (130-400); RED CELL DISTRIBUTION WIDTH 18.4 % (11.6-14.6)
[2022-06-07 00:17] LABS: CHLORIDE 98 mEq/L (98-107)
[2022-06-07] MEDS ORDERED: FUROSEMIDE 100MG/10ML VIAL IVP NR (00:45)
[2022-06-07] MEDS ORDERED: IPRATROPIUM BROMIDE (0.02%) 0.5MG/2.5ML NEB HHN STA (00:46)
[2022-06-07] MEDS: ALBUTEROL (0.083%) 2.5MG/3ML NEB HHN SCH ×2 (01:00→02:01)
[2022-06-07] MEDS ORDERED: NITROGLYCERIN OINT 1GM/INCH UDPKT TD ONE (01:00)
[2022-06-07] MEDS ORDERED: ONDANSETRON HCL 4MG/2ML INJ IV PRN (13:00)
[2022-06-07] MEDS ORDERED: ACETAMINOPHEN 650MG/20.3ML UDC GT PRN (13:00)
[2022-06-07] MEDS: FUROSEMIDE 40MG/4ML VIAL IVP SCH (13:19)
[2022-06-07 15:07] LABS: CREATINE KINASE MB FRACTION 2.8 ng/mL (0.5-3.6)
[2022-06-07] MEDS ORDERED: RIVAROXABAN 20 MG TABLET PO SCH ×2 (17:00)
[2022-06-07 18:00] VITALS: BP 96/61
[2022-06-07 20:00] VITALS: BP 105/61
[2022-06-07] MEDS: CARVEDILOL 3.125 MG TABLET PO SCH (21:00)
[2022-06-07 23:13] LABS: CREATINE KINASE MB FRACTION 2.5 ng/mL (0.5-3.6)
[2022-06-08] VITALS: BP 111/65
[2022-06-08 04:00] VITALS: BP 111/70
[2022-06-08 05:58] LABS: BASOPHILS % 2.3 % (0.0-2.0); EOSINOPHILS % 4.4 % (0.0-5.0); HEMATOCRIT. 34.1 % (36.0-48.0); HEMOGLOBIN. 11.1 g/dL (12.0-16.0); MEAN CORPUSCULAR HEMOGLOBIN 30.3 pg (28.0-32.0); MEAN CORPUSCULAR VOLUME 93.2 fL (81.0-99.0); MEAN PLATELET VOLUME 9.5 fl (7.4-10.4); MONOCYTES % 6.4 % (2.0-8.0); NEUTROPHILS % 74.9 % (40.0-76.0); PLATELET 149 x1000/uL (130-400); RED BLOOD CELL COUNT 3.66 mill/uL (4.2-5.4); RED CELL DISTRIBUTION WIDTH 18.2 % (11.6-14.6)
[2022-06-08] MEDS ORDERED: APIX5TAB4 PO (07:47)
[2022-06-08 08:00] VITALS: BP 115/68
[2022-06-08] MEDS ORDERED: METOPROLOL SUCCINATE 50MG ER TABLET PO SCH (09:00)
[2022-06-08] MEDS: FUROSEMIDE 40MG/4ML VIAL IVP SCH (09:09)
[2022-06-08] MEDS: LISINOPRIL 2.5MG TABLET PO SCH (09:11)
[2022-06-08] MEDS: CARVEDILOL 3.125 MG TABLET PO SCH ×2 (09:12→21:00)
[2022-06-08] MEDS: SPIRONOLACTONE 25MG TABLET PO SCH (09:12)
[2022-06-08] MEDS: AMIODARONE HCL 200 MG TABLET PO SCH (09:12)
[2022-06-08 12:00] VITALS: BP 101/64
[2022-06-08 15:57] LABS: BASOPHILS % 0.9 % (0.0-2.0); EOSINOPHILS % 2.7 % (0.0-5.0); HEMATOCRIT. 35.7 % (36.0-48.0); HEMOGLOBIN. 11.7 g/dL (12.0-16.0); LYMPHOCYTES % 10.2 % (20.0-50.0); MEAN CORPUSCULAR HEMOGLOBIN 30.7 pg (28.0-32.0); MEAN CORPUSCULAR VOLUME 93.6 fL (81.0-99.0); MEAN PLATELET VOLUME 9.9 fl (7.4-10.4); MONOCYTES % 6.9 % (2.0-8.0); NEUTROPHILS % 79.3 % (40.0-76.0); PLATELET 216 x1000/uL (130-400); RED BLOOD CELL COUNT 3.82 mill/uL (4.2-5.4)
[2022-06-08 16:00] VITALS: BP 108/61
[2022-06-08 16:07] LABS: CHLORIDE 99 mEq/L (98-107)
[2022-06-08 20:00] VITALS: BP 95/68
[2022-06-09] VITALS: BP 97/63
[2022-06-09 04:00] VITALS: BP 98/63
[2022-06-09 06:21] LABS: BASOPHILS % 2.3 % (0.0-2.0); EOSINOPHILS % 3.9 % (0.0-5.0); HEMATOCRIT. 34.9 % (36.0-48.0); HEMOGLOBIN. 11.8 g/dL (12.0-16.0); LYMPHOCYTES % 15.5 % (20.0-50.0); MEAN CORPUSCULAR HEMOGLOBIN 31.3 pg (28.0-32.0); MEAN CORPUSCULAR VOLUME 92.7 fL (81.0-99.0); MEAN PLATELET VOLUME 9.5 fl (7.4-10.4); MONOCYTES % 8.2 % (2.0-8.0); NEUTROPHILS % 70.1 % (40.0-76.0); PLATELET 172 x1000/uL (130-400); RED BLOOD CELL COUNT 3.76 mill/uL (4.2-5.4); RED CELL DISTRIBUTION WIDTH 17.9 % (11.6-14.6)
[2022-06-09 07:50] LABS: CHLORIDE 99 mEq/L (98-107)
[2022-06-09 08:00] VITALS: BP 96/61
[2022-06-09] MEDS: CARVEDILOL 3.125 MG TABLET PO SCH (08:30)
[2022-06-09] MEDS: SPIRONOLACTONE 25MG TABLET PO SCH (08:38)
[2022-06-09] MEDS: AMIODARONE HCL 200 MG TABLET PO SCH (08:38)
[2022-06-09] MEDS: LISINOPRIL 2.5MG TABLET PO SCH (08:38)
[2022-06-09] MEDS: FUROSEMIDE 40MG/4ML VIAL IVP SCH (08:38)
[2022-06-09 12:00] VITALS: BP 104/63
[2022-06-09 14:01] VITALS: BP 104/63
[2022-06-10] MEDS ORDERED: AMIODARONE HCL 200 MG TABLET PO SCH (09:00)
== END 2022-06-09 14:45 | disposition home or self-care (01) | DRG 291 ==
LOC: ER 23:25 → EDBEDREQ 06-07 01:51 → EDBEDREQTM 06-07 01:51 → 7EST 06-07 02:39 → MICUSO 06-07 03:39 → 7EST 06-07 17:55
PROVIDERS: ADMIT Internal Medicine; ATTEND Internal Medicine
DX: I11.0 Hypertensive heart disease with heart failure (principal); I50.23 Acute on chronic systolic (congestive) heart failure; J96.91 Respiratory failure, unspecified with hypoxia; I42.0 Dilated cardiomyopathy; E11.9 Type 2 diabetes mellitus without complications; E78.5 Hyperlipidemia, unspecified; I48.0 Paroxysmal atrial fibrillation; I25.10 Atherosclerotic heart disease of native coronary artery without angina pectoris; I95.9 Hypotension, unspecified; Z20.822 Contact with and (suspected) exposure to COVID-19; Z87.442 Personal history of urinary calculi; Z79.01 Long term (current) use of anticoagulants; Z95.810 Presence of automatic (implantable) cardiac defibrillator
CPT/HCPCS: 36415; 71045; 80048; 80053; 82550; 82553; 83880; 84484; 85025; 87426; 93005; 94640; 99285; J1940; J2405

== ENCOUNTER 2022-06-19 19:55 | Inpatient (IN) | payer OTHER ==
[~2022-06-19] VITALS: Ht 165.1 cm; Wt 69.1 kg
[~2022-06-19 19:55] MED LIST changes: +APIX5TAB4 PO
[2022-06-19] MEDS ORDERED: ASPIRIN 81MG TABLET PO ONE (21:00)
[2022-06-19 23:24] LABS: BASOPHILS % 1.3 % (0.0-2.0); EOSINOPHILS % 0.4 % (0.0-5.0); HEMATOCRIT. 39.3 % (36.0-48.0); HEMOGLOBIN. 12.6 g/dL (12.0-16.0); LYMPHOCYTES % 10.6 % (20.0-50.0); MONOCYTES % 6.1 % (2.0-8.0); NEUTROPHILS % 81.6 % (40.0-76.0); PLATELET 180 x1000/uL (130-400); RED BLOOD CELL COUNT 4.19 mill/uL (4.2-5.4); RED CELL DISTRIBUTION WIDTH 18.3 % (11.6-14.6)
[2022-06-19 23:33] LABS: CHLORIDE 101 mEq/L (98-107)
[2022-06-20] MEDS ORDERED: ASPIRIN 81MG TABLET PO NR (04:00)
[2022-06-20] MEDS ORDERED: FUROSEMIDE 40MG/4ML VIAL IVP SCH (10:15)
[2022-06-20] MEDS ORDERED: ONDANSETRON HCL 4MG/2ML INJ IV PRN (10:45)
[2022-06-20] MEDS ORDERED: ACETAMINOPHEN 325MG TABLET PO PRN (10:45)
[2022-06-20] MEDS ORDERED: APIXABAN 5 MG TABLET PO SCH (11:00)
[2022-06-20] MEDS: METOPROLOL SUCCINATE 50MG ER TABLET PO SCH (12:00)
[2022-06-20] MEDS: AMIODARONE HCL 200 MG TABLET PO SCH (12:44)
[2022-06-20] MEDS: LISINOPRIL 2.5MG TABLET PO SCH (12:44)
[2022-06-20 17:30] VITALS: BP 110/68
[2022-06-20 18:22] VITALS: BP 110/68
[2022-06-20 20:00] VITALS: BP 99/63
[2022-06-20] MEDS: RIVAROXABAN 20 MG TABLET PO SCH ×2 (20:17→20:18)
[2022-06-20] MEDS: FUROSEMIDE 40MG/4ML VIAL IVP SCH (20:18)
[2022-06-20 21:16] LABS: CREATINE KINASE MB FRACTION 2.6 ng/mL (0.5-3.6)
[2022-06-21] VITALS (8 sets, daily range): BP systolic 91–108; BP diastolic 55–68
[2022-06-21 00:33] LABS: CREATINE KINASE MB FRACTION 1.9 ng/mL (0.5-3.6)
[2022-06-21] MEDS: FUROSEMIDE 40MG/4ML VIAL IVP SCH ×2 (06:20→18:38)
[2022-06-21] MEDS: LISINOPRIL 2.5MG TABLET PO SCH (09:00)
[2022-06-21] MEDS: SPIRONOLACTONE 25MG TABLET PO SCH (09:48)
[2022-06-21] MEDS: AMIODARONE HCL 200 MG TABLET PO SCH (09:48)
[2022-06-21] MEDS: METOPROLOL SUCCINATE 50MG ER TABLET PO SCH (09:49)
[2022-06-21 13:05] LABS: BASOPHILS % 1.2 % (0.0-2.0); EOSINOPHILS % 1.8 % (0.0-5.0); HEMATOCRIT. 37.3 % (36.0-48.0); HEMOGLOBIN. 12.3 g/dL (12.0-16.0); LYMPHOCYTES % 7.4 % (20.0-50.0); MEAN CORPUSCULAR HEMOGLOBIN 31.1 pg (28.0-32.0); MEAN CORPUSCULAR VOLUME 94.1 fL (81.0-99.0); MEAN PLATELET VOLUME 9.5 fl (7.4-10.4); NEUTROPHILS % 83.6 % (40.0-76.0); PLATELET 159 x1000/uL (130-400); RED BLOOD CELL COUNT 3.97 mill/uL (4.2-5.4); RED CELL DISTRIBUTION WIDTH 18.3 % (11.6-14.6)
[2022-06-21] MEDS: RIVAROXABAN 20 MG TABLET PO SCH (18:38)
[2022-06-22] VITALS (9 sets, daily range): BP systolic 88–113; BP diastolic 30–72
[2022-06-22] MEDS: FUROSEMIDE 40MG/4ML VIAL IVP SCH ×2 (06:39→17:20)
[2022-06-22 07:29] LABS: BASOPHILS % 1.7 % (0.0-2.0); EOSINOPHILS % 2.3 % (0.0-5.0); HEMATOCRIT. 35.8 % (36.0-48.0); HEMOGLOBIN. 11.6 g/dL (12.0-16.0); LYMPHOCYTES % 11.4 % (20.0-50.0); MEAN CORPUSCULAR HEMOGLOBIN 30.5 pg (28.0-32.0); MEAN PLATELET VOLUME 9.5 fl (7.4-10.4); MONOCYTES % 7.9 % (2.0-8.0); NEUTROPHILS % 76.7 % (40.0-76.0); PLATELET 156 x1000/uL (130-400); RED BLOOD CELL COUNT 3.81 mill/uL (4.2-5.4)
[2022-06-22 07:38] LABS: CHLORIDE 100 mEq/L (98-107)
[2022-06-22] MEDS: METOPROLOL SUCCINATE 50MG ER TABLET PO SCH (07:58)
[2022-06-22] MEDS: AMIODARONE HCL 200 MG TABLET PO SCH (07:58)
[2022-06-22] MEDS: SPIRONOLACTONE 25MG TABLET PO SCH (07:58)
[2022-06-22] MEDS: LISINOPRIL 2.5MG TABLET PO SCH (07:58)
[2022-06-22] MEDS ORDERED: METO-385 PO (15:19)
[2022-06-22] MEDS ORDERED: APIX5TAB PO (15:20)
[2022-06-22] MEDS ORDERED: AMI2 PO (15:20)
[2022-06-22] MEDS: RIVAROXABAN 20 MG TABLET PO SCH (17:22)
[2022-06-23] VITALS (7 sets, daily range): BP systolic 95–133; BP diastolic 45–69
[2022-06-23] MEDS: FUROSEMIDE 40MG/4ML VIAL IVP SCH ×2 (06:34→17:08)
[2022-06-23] MEDS: SPIRONOLACTONE 25MG TABLET PO SCH (08:19)
[2022-06-23] MEDS: AMIODARONE HCL 200 MG TABLET PO SCH (08:19)
[2022-06-23] MEDS: LISINOPRIL 2.5MG TABLET PO SCH (09:00)
[2022-06-23] MEDS: METOPROLOL SUCCINATE 50MG ER TABLET PO SCH (09:00)
[2022-06-23] MEDS ORDERED: RIVAROXABAN 15 MG TABLET PO SCH (17:20)
== END 2022-06-23 18:39 | disposition home or self-care (01) | DRG 291 ==
LOC: ER 19:55 → 3WST 06-20 00:13 → EDBEDREQ 06-20 02:19
PROVIDERS: ADMIT Internal Medicine; ATTEND Internal Medicine
DX: I11.0 Hypertensive heart disease with heart failure (principal); I50.23 Acute on chronic systolic (congestive) heart failure; I48.19 Other persistent atrial fibrillation; I48.92 Unspecified atrial flutter; I51.3 Intracardiac thrombosis, not elsewhere classified; I27.20 Pulmonary hypertension, unspecified; I42.8 Other cardiomyopathies; Z79.01 Long term (current) use of anticoagulants; Z87.442 Personal history of urinary calculi; Z95.0 Presence of cardiac pacemaker; Z79.899 Other long term (current) drug therapy
CPT/HCPCS: 36415; 71045; 80048; 80053; 82550; 82553; 82962; 83880; 84484; 85025; 93005; 93306; 93970; 97161; 99285; J1940; J2405

== ENCOUNTER 2022-07-07 05:10 | Inpatient (IN) | payer OTHER ==
[~2022-07-07] VITALS: Ht 165.1 cm; Wt 63.6 kg
[~2022-07-07 05:10] MED LIST changes: +AMI2 PO; -AMIO100T4 PO; +APIX5TAB PO; -APIX5TAB4 PO; -RIVA20TA PO
[2022-07-07 06:41] LABS: EOSINOPHILS % 0.5 % (0.0-5.0); HEMATOCRIT. 40.3 % (36.0-48.0); LYMPHOCYTES % 10.2 % (20.0-50.0); MEAN CORPUSCULAR HEMOGLOBIN 30.6 pg (28.0-32.0); MEAN CORPUSCULAR VOLUME 94.6 fL (81.0-99.0); MEAN PLATELET VOLUME 9.9 fl (7.4-10.4); NEUTROPHILS % 81.3 % (40.0-76.0); PLATELET 207 x1000/uL (130-400); RED BLOOD CELL COUNT 4.26 mill/uL (4.2-5.4); RED CELL DISTRIBUTION WIDTH 17.5 % (11.6-14.6)
[2022-07-07 07:08] LABS: CHLORIDE 98 mEq/L (98-107)
[2022-07-07] MEDS ORDERED: ONDANSETRON HCL 4MG/2ML INJ IV PRN (12:15)
[2022-07-07] MEDS ORDERED: ACETAMINOPHEN 325MG TABLET PO PRN (12:15)
[2022-07-07] MEDS: METOPROLOL SUCCINATE 50MG ER TABLET PO SCH (13:21)
[2022-07-07 14:12] VITALS: BP 110/69
[2022-07-07 14:24] VITALS: BP 110/69
[2022-07-07 16:00] VITALS: BP 103/59
[2022-07-07] MEDS ORDERED: APIXABAN 5 MG TABLET PO SCH (17:00)
[2022-07-07] MEDS: FUROSEMIDE 40MG/4ML VIAL IVP SCH (17:53)
[2022-07-07] MEDS: AMIODARONE HCL 200 MG TABLET PO SCH (17:53)
[2022-07-07 20:01] VITALS: BP 106/49
[2022-07-08 00:08] VITALS: BP 109/66
[2022-07-08 04:09] VITALS: BP 92/55
[2022-07-08] MEDS: FUROSEMIDE 40MG/4ML VIAL IVP SCH ×3 (07:15→17:15)
[2022-07-08 07:25] LABS: CLARITY URINE TURBID (CLEAR); COLOR URINE DARK YELLOW (YELLOW); KETONES URINE TRACE (NEGATIVE); LEUKOCYTE ESTERASE URINE 3+ (NEGATIVE); NITRITE URINE POSITIVE (NEGATIVE); OCCULT BLOOD URINE 2+ (NEGATIVE); PROTEIN URINE 2+ (NEGATIVE)
[2022-07-08 07:25] LABS: BASOPHILS % 0.6 % (0.0-2.0); EOSINOPHILS % 0.2 % (0.0-5.0); HEMATOCRIT. 36.4 % (36.0-48.0); HEMOGLOBIN. 11.9 g/dL (12.0-16.0); LYMPHOCYTES % 10.4 % (20.0-50.0); MEAN CORPUSCULAR VOLUME 94.4 fL (81.0-99.0); MEAN PLATELET VOLUME 10.1 fl (7.4-10.4); MONOCYTES % 7.8 % (2.0-8.0); PLATELET 170 x1000/uL (130-400); RED BLOOD CELL COUNT 3.85 mill/uL (4.2-5.4); RED CELL DISTRIBUTION WIDTH 17.7 % (11.6-14.6)
[2022-07-08 08:00] VITALS: BP 93/55
[2022-07-08] MEDS: METOPROLOL SUCCINATE 50MG ER TABLET PO SCH (09:00)
[2022-07-08] MEDS ORDERED: FUROSEMIDE 40MG/4ML VIAL IVP SCH (09:00)
[2022-07-08] MEDS: AMIODARONE HCL 200 MG TABLET PO SCH (09:35)
[2022-07-08 12:00] VITALS: BP 89/56
[2022-07-08 16:00] VITALS: BP 88/60
[2022-07-08] MEDS ORDERED: RIVAROXABAN 15 MG TABLET PO SCH (17:20)
[2022-07-08] MEDS: CEFTRIAXONE 1,000 MG in DEXTROSE 5% WATER 50 ML IV SCH (17:50)
[2022-07-08] MEDS ORDERED: ENOXAPARIN 60MG/0.6ML SYR SUBCUT NR (18:00)
[2022-07-08 19:32] LABS: INR 6.1
[2022-07-08 19:33] LABS: PROTHROMBIN TIME 58.1 sec (9.6-11.0)
[2022-07-08 20:17] VITALS: BP 86/57
[2022-07-09] VITALS (9 sets, daily range): BP systolic 80–97; BP diastolic 50–71
[2022-07-09] MEDS: FUROSEMIDE 40MG/4ML VIAL IVP SCH ×2 (06:37→17:13)
[2022-07-09 07:48] LABS: PROTHROMBIN TIME 20.7 sec (9.6-11.0)
[2022-07-09] MEDS: METOPROLOL TARTRATE 25MG TABLET PO SCH ×2 (08:21→21:23)
[2022-07-09] MEDS ORDERED: METOPROLOL SUCCINATE 50MG ER TABLET PO SCH (09:00)
[2022-07-09] MEDS ORDERED: FURO40TA5 PO (11:07)
[2022-07-09] MEDS ORDERED: LEVO250T74 MT (11:07)
[2022-07-09] MEDS ORDERED: METO25TA6 PO (11:07)
[2022-07-09] MEDS: CEFTRIAXONE 1,000 MG in DEXTROSE 5% WATER 50 ML IV SCH (12:25)
[2022-07-10] VITALS: BP 92/62
[2022-07-10 04:00] VITALS: BP 105/62
[2022-07-10] MEDS: FUROSEMIDE 40MG/4ML VIAL IVP SCH (06:36)
[2022-07-10 08:00] VITALS: BP 102/59
[2022-07-10] MEDS: METOPROLOL TARTRATE 25MG TABLET PO SCH (08:51)
[2022-07-10] MEDS ORDERED: FUROSEMIDE 20MG TABLET PO SCH (09:00)
[2022-07-10 12:00] VITALS: BP 92/58
[2022-07-10] MEDS ORDERED: CEFTRIAXONE 1GM PREMIX 50 ML IV SCH (13:00)
[2022-07-10 16:00] VITALS: BP 94/63
[2022-07-10 18:59] VITALS: BP 101/55
== END 2022-07-10 15:30 | disposition home or self-care (01) | DRG 291 ==
LOC: ER 05:10 → 3WST 08:24 → EDBEDREQTM 08:26 → EDBEDREQ 08:26 → ENRESERV 11:31
PROVIDERS: ADMIT Internal Medicine; ATTEND Internal Medicine
DX: I11.0 Hypertensive heart disease with heart failure (principal); I50.23 Acute on chronic systolic (congestive) heart failure; N17.0 Acute kidney failure with tubular necrosis; J96.01 Acute respiratory failure with hypoxia; E44.1 Mild protein-calorie malnutrition; E87.1 Hypo-osmolality and hyponatremia; N39.0 Urinary tract infection, site not specified; D72.819 Decreased white blood cell count, unspecified; I42.8 Other cardiomyopathies; I48.0 Paroxysmal atrial fibrillation; I25.10 Atherosclerotic heart disease of native coronary artery without angina pectoris; I08.3 Combined rheumatic disorders of mitral, aortic and tricuspid valves; Z68.23 Body mass index [BMI] 23.0-23.9, adult; Z79.01 Long term (current) use of anticoagulants
CPT/HCPCS: 36415; 71045; 76700; 80048; 80053; 81003; 83605; 83880; 84484; 85025; 87186; 93005; 99285; J0696; J1650; J1940; J2405; J7060